=== PATIENT | male | born 1965 | race Caucasian/White ===

== ENCOUNTER 2024-08-29 07:54 | Inpatient (IN) | payer MEDICAID, OTHER ==
[~2024-08-29] VITALS: Ht 180.3 cm; Wt 119.0 kg
--- NOTE | 2024-08-29 09:03 | ED.PDOC ---
Altered Mental Status HPI Comments 58 year old male brought in by EMS presents to the ED with a chief complaint of altered mental status onset today. Per EMS, they were called due to patient experiencing ALOC, slurred speech that was noticed today around 06:00. According to facility, patient experienced multiple falls last night, no LOC. Upon ED a rrival BS was 75. PMHx seizures. Denies chest pain, LOC, head injury. No other symptoms or modifying factors present at this time. Chief Complaint: ALOC Time Seen by MD: 08:24 Reviewed Notes: Medications, Allergies Allergies: Coded Allergies: NO KNOWN ALLERGIES (Unverified , 08/29/24) Information Source: Patient, Emergency Med Personnel Mode of Arrival: EMS Severity: Moderate Timing: Hours Duration: Since onset Prehospital treatment: None Quality: Decreased Alertness Recent: Other (fall) History of: Seizure Associated Signs and Symptoms: Slurred Speech Past Medical History PAST MEDICAL HISTORY: Seizures Surgical History: Unknown Family History Family History: Unknown Social History Smoker: Non-Smoker Alcohol: Denies ETOH Use Drugs: Denies Drug Use Lives In: Assisted Care Constitutional: denies: chills, diaphoresis, fatigue, fever, malaise, sweats, weakness, others EENTM: denies: blurred vision, double vision, ear bleeding, ear discharge, ear drainage, ear pain, ear ringing, eye pain, eye redness, hearing loss, mouth pain, mouth swelling, nasal discharge, nose bleeding, nose congestion, nose pain, photophobia, tearing, throat pain, throat swelling, voice changes, others Respiratory: denies: cough, hemoptysis, orthopnea, SOB at rest, shortness of breath, SOB with excertion, stridor, wheezing, others Cardiovascular: denies: chest pain, dizzy spells, diaphoresis, Dyspnea on exertion, edema, irregular heart beat, left arm pain, lightheadedness, palpitations, PND, syncope, others Gastrointestinal: denies: abdomen distended, abdominal pain, blood streaked bowels, constipated, diarrhea, dysphagia, difficulty swallowing, hematemesis, melena, nausea, poor appetite, poor fluid intake, rectal bleeding, rectal pain, vomiting, others Genitourinary: denies: burning, dysuria, flank pain, frequency, hematuria, incontinence, penile discharge, penile sore, pain, testicle pain, testicle swelling, urgency, others Neurological: reports: speech problems (slurred); denies: dizziness, fainting, headache, left sided numbness, left sided weakness, numbness, paresthesia, pre- existing deficit, right sided numbness, right sided weakness, seizure, tingling, tremors, weakness, others Musculoskeletal: denies: back pain, gout, joint pain, joint swelling, muscle pain, muscle stiffness, neck pain, others Integumetry: denies: bruises, change in color, change in hair/nails, dryness, laceration, lesions, lumps, rash, wounds, others Allergic/Immunocompromised: denies: Difficulty Healing, Frequent Infections, Hives, Itching, others Hematologic/Lymphatic: denies: anemia, blood clots, easy bleeding, easy bruising, swollen glands, others Endocrine: denies: excessive hunger, excessive sweating, excessive thirst, excessive urination, flushing, intolerance to cold, intolerance to heat, une xplained weight gain, unexplained weight loss, others Psychiatric: denies: anxiety, bipolar disorder, depression, hopeless, panic disorder, schizophrenia, sleepless, suicidal, others Unable to Obtain due to: Altered Mental Status All Other Systems: Reviewed and Negative Physical Exam General Appearance: No Apparent Distress, Obese, Other (FACIAL DROOP) HEENT: Normal ENT Inspection, PERRL/EOMI, Other (SLURRED SPEECH) Neck: Full Range of Motion, Non-Tender, Normal, Normal Inspection Respiratory: Chest Non-Tender, Lungs Clear, No Accessory Muscle Use, No Respiratory Distress, Normal Breath Sounds Cardiovascular: No Edema, No JVD, No Murmur, No Gallop, Normal Peripheral Pulses, Regular Rate/Rhythm Breast Exam: Deferred Gastrointestinal: No Organomegaly, Non Tender, No Pulsatile Mass, Normal Bowel Sounds, Soft, Other (OBESITY) Genitalia: Deferred Pelvic: Deferred Rectal: Deferred Extremities: Decreased range of motion, Non-tender, No pedal edema Neurologic: Alert, Depressed Affect, Facial Droop, Motor Weakness, Speech Problem Cerebellar Function: NOT DONE Reflexes: NOT DONE Skin: Dry, Normal Color, Warm Peripheral Pulses: 1+ carotid (R), 1+ carotid (L) Lymphatic: No Adenopathy EKG EKG : Pulse Rate (adult): 73 Cardiac Rhythm: NSR Block: LBBB Hypertrophy: LAE Was a procedure done? Was a procedure done?: No Differential Diagnosis (ALOC) Differential Diagnosis: Dehydration, Hypoglycemia, Encephalopathy, Sepsis, Hypoxemia, Seizure, Closed Head Injury, CVA, Mass Lesion, Drug Overdose, ETOH Intoxication, Heart Failure, Renal Failure X-Ray, Labs, Meds, VS Vital Signs Date Time Temp Pulse Resp B/P (MAP) Pulse Ox O2 Delivery O2 Flow Rate FiO2 08/29/24 15:00 69 14 139/94 (109) 95 08/29/24 12:00 100 14 123/60 (81) 100 08/29/24 11:28 73 08/29/24 10:53 74 17 95 Nasal Cannula* 3 32 08/29/24 10:52 97.5 74 17 138/67 (90) 95 97.5 08/29/24 08:19 97.2 89 20 116/68 (84) 95 08/29/24 08:14 73 Lab Test 08/29/24 13:45 08/29/24 11:25 Range/Units Prothrombin Time 11.5 9.3-11.8 sec Prothrombin Time INR 1.09 0.9-1.15 Activated Partial Thromboplast Time 26.7 24.5-34.5 SEC D-Dimer, Quantitative 0.50 H 0.0-0.49 mg/L FEU White Blood Count 9.3 4.4-10.8 10^3/uL Red Blood Count 2.77 L 4.5-5.90 10^6/uL Hemoglobin 7.8 L 13.5-17.5 g/dL Hematocrit 26.0 L 41.0-53.0 % Mean Corpuscular Volume 93.8 80.0-100.0 fL Mean Corpuscular Hemoglobin 28.2 28.0-32.0 pg Mean Corpuscular Hemoglobin Concent 30.0 L 32.0-36.0 g/dL Red Cell Distribution Width 18.2 H 11.8-14.3 % Platelet Count 225 140-450 10^3/uL Mean Platelet Volume 8.2 6.9-10.8 fL Neutrophils (%) (Auto) 66.0 37.0-80.0 % Lymphocytes (%) (Auto) 21.6 10.0-50.0 % Monocytes (%) (Auto) 10.7 0.0-12.0 % Eosinophils (%) (Auto) 1.4 0.0-7.0 % Basophils (%) (Auto) 0.3 0.0-2.0 % Neutrophils # (Auto) 6.1 1.6-8.6 10 ^3/uL Lymphocytes # (Auto) 2.0 0.4-5.4 10 ^3/uL Monocytes # (Auto) 1.0 0-1.3 10 ^3/uL Eosinophils # (Auto) 0.1 0-0.8 10 ^3/uL Basophils # (Auto) 0 0-0.2 10 ^3/uL Nucleated Red Blood Cells 0.2 % Sodium Level 138 136-145 mmol/L Potassium Level 4.5 3.5-5.1 mmol/L Chloride Level 102 98-107 mmol/L Carbon Dioxide Level 24 20-31 mmol/L Anion Gap 12 5-15 Blood Urea Nitrogen 64 H 9-23 mg/dL Creatinine 3.18 H 0.700-1.30 mg/dL Glomerular Filtration Rate Calc 22 >90 mL/min BUN/Creatinine Ratio 20.1 H 10.0-20.0 Serum Glucose 73 L 74-106 mg/dL Lactic Acid Level 1.4 0.4-2.0 mmol/L Calcium Level 10.0 8.7-10.4 mg/dL Magnesium Level 2.0 1.6-2.6 mg/dL Total Bilirubin 0.4 0.2-1.0 mg/dL Aspartate Amino Transferase (AST) < 8 L 13-40 U/L Alanine Aminotransferase (ALT) 20 7-40 U/L Alkaline Phosphatase 49 46-116 U/L Troponin I High Sensitivity 53 </=54 ng/L Total Protein 7.2 5.7-8.2 g/dL Albumin 4.4 3.2-4.8 g/dL Plasma/Serum Blood Alcohol 3.4 <10 mg/dL Current Medications Medications (Trade) Dose Ordered Sig/Josie Route Start Time Stop Time Status Last Admin Sodium Chloride 500 ml @ 500 mls/hr Q1H ONCE IVB 08/29/24 11:00 08/29/24 11:59 DC 08/29/24 11:[address] [address] Ph: [phone] DIAGNOSTIC IMAGING Diagnostic Imaging Report : [id number] Signed PATIENT: KEVIN SHEFFIELD ACCT: [id number] UNIT: [id number] : 1965 LOC: ER ROOM / BED: / AGE / SEX: 58 / M ADM STATUS: REG ER SERVICE 6 ORDERING PHYSICIAN: KAREN BARRY MD PROCEDURE(s): HWOCT - HEAD WITHOUT CONTRAST REASON: ALOC ORDER NUMBER(s): [id number], ACCESSION NUMBER(s): [id number] CT HEAD WITHOUT CONTRAST INDICATION: ALOC EXAM DATE: 08/29/2024 09:04 AM COMPARISON: None RADIATION DOSE: CTDIvol: 69 mGy, DLP: 1499 mGy*cm PROCEDURE: CT scans of the head were obtained from the vertex to the skull base. Sagittal and coronal reconstructions were provided. All CT scans at this medical facility are performed using dose modulation techniques as appropriate to a performed exam including the following: Automated exposure control was utilized; adjustment of the MA and/or KV according to patient size; and use of iterative reconstruction technique. FINDINGS: There is sulcal and ventricular prominence. The brain otherwise shows normal morphology and olguin-white matter differentiation, without intracranial hemorrhage, extra-axial fluid collection, mass effect or acute large vessel infarct.The basal cisterns are patent. The skull and visible facial bones are intact. The paranasal sinuses, mastoid air cells and middle ear cavities are well-aerated. The soft tissues of the scalp are unremarkable. IMPRESSION: No acute intracranial abnormality. ATED BY: THEE TORIBIO MD DICTATED DATE/TIME: 08/29/24923 SIGNED BY: THEE TORIBIO MD SIGNED DATE/TIME: 08/29/24923 CC: X-Ray, Labs, Meds, VS Comment COURSE IN THE EMERGENCY DEPARTMENT EVENTFUL PATIENT CAME IN BECAUSE OF A SLURRED SPEECH AND HAD MULTIPLE FALLS HE CAME FROM A FACILITY PATIENT HAS HISTORY OF CHF DIABETES AND HYPERTENSION BLOOD PRESSURE IS 116/68 THE BLOOD SUGAR IS 75-135 THE CHEST X-RAY SHOWS PULMONARY VASCULAR CONGESTION EKG SHOWS NORMAL SINUS RHYTHM AT 73 WITH LEFT ATRIAL ENLARGEMENT AND LEFT BUNDLE-BRANCH BLOCK CT HEAD IS NEGATIVE TROPONIN 53 CBC 9300 WITH 66% NEUTROPHILS H&H 7.8 AND 26 CMP GFR 22 LACTIC ACID 1.4 INR 1.09 URINE AND UDS PENDING D-DIMER 0.50 MAGNESIUM 2.0 BLOOD ALCOHOL 34 PATIENT WILL BE ADMITTED FOR FURTHER CARE Time of 1ST Reevaluation: 08:54 Reevaluation 1ST: Unchanged Time of 2ND Reevaluation: 15:46 Reevaluation 2ND: Unchanged Patient Education/Counseling: Diagnosis, Treatment, Prognosis Family Education/Counseling: Diagnosis, Treatment, Prognosis, No Family Present Additional Information The following tests were ordered, and results were reviewed by me: CT HEAD WO CONTRAST, EKG Additional Information was gathered from interviewing the following independent historians: EMS I reviewed and agreed with the following test results read by other providers: CT HEAD WO CONTRAST I discussed treatment and results with medical personnel and patient Departure 1 Departure Time of Disposition: 15:48 Impression: Primary Impression: Generalized weakness Additional Impressions: TIA (transient ischemic attack) Anemia Qualified Codes: N18.4 - Chronic kidney disease, stage 4 (severe); D63.1 - Anemia in chronic kidney disease CKD (chronic kidney disease) stage 4, GFR 15-29 ml/min Disposition: 50 HOSPICE/HOME Condition: Fair Critical Care Note Critical Care Time?: No Stability Stability form required: Yes Unstable for transfer: Telemetry monitoring (Telemetry monitoring required), Requires medication (Requires Med for stabilization) Heart Score Heart Score: Heart Score Response (Comments) Value History Slightly Suspicious 0 EKG Repolarization Disturb 1 Age 45-64 1 Risk Factors >3 or Hx ASHD 2 Troponin Normal limit 0 Total 4 I personally scribed for KAREN BARRY MD ([email or web address]) on 08/29/24 at 09:03. Electronically submitted by Kristy Moses ([email or web address]). I personally scribed for KAREN BARRY MD ([email or web address]) on 08/29/24 at 10:03. Electronically submitted by Kristy Moses ([email or web address]). KAREN BARRY MD Aug 29, 2024 09:03
--- NOTE | 2024-08-29 09:27 | DVH ---
CT HEAD WITHOUT CONTRAST INDICATION: ALOC EXAM DATE: 08/29/2024 09:04 AM COMPARISON: None RADIATION DOSE: CTDIvol: 69 mGy, DLP: 1499 mGy*cm PROCEDURE: CT scans of the head were obtained from the vertex to the skull base. Sagittal and coronal reconstructions were provided. All CT scans at this medical facility are performed using dose modulation techniques as appropriate t o a performed exam including the following: Automated exposure control was utilized; adjustment of th e MA and/or KV according to patient size; and use of iterative reconstruction technique. FINDINGS: There is sulcal and ventricular prominence. The brain otherwise shows normal morphology a nd olguin-white matter differentiation, without intracranial hemorrhage, extra-axial fluid collection, mass effect or acute large vessel infarct.The basal cisterns are patent. The skull and visible facial bones are intact. The paranasal sinuses, mastoid air cells and middle ear cavities are well-aerated. The soft tissues of the scalp are unremarkable. IMPRESSION: No acute intracranial abnormality.
--- NOTE | 2024-08-29 09:36 | ECG ---
[facility] Test Date: 2024-08-29 Test Time: 08:14:38 Pat Name: KEVIN SHEFFIELD Department: ED Room: 0291T Gender: M Product Management Manager: : 1965 Requested By: KAREN BARRY Order Number: [id number] Reading MD: Stan June Measurements Intervals [place] Rate: 73 P: 54 MD: 161 QRS: 41 QRSD: 119 T: 40 QT: 403 QTc: 444 Interpretive Statements Sinus rhythm Left atrial enlargement Incomplete left bundle branch block Abnormal inferior Q waves Electronically Signed On 09-01-2024 16:30:38 PST by Stan June Please click the below link to view image of tracing.
[2024-08-29 10:53] VITALS: PULSE 74; RESP 17; O2SAT 95
[2024-08-29] MEDS: SODIUM CHLORIDE 0.9% 500 ML IVB ONE (11:12)
[2024-08-29] MEDS: SODIUM CHLORIDE 0.9% 1,000 ML IV ONE (11:13)
[2024-08-29 11:53] LABS: Basophils # (auto) 0 10 ^3/uL (0-0.2)
--- NOTE | 2024-08-29 12:00 | DVH ---
AP portable chest HISTORY: ALOC Comparison: None FINDINGS: Heart size is enlarged. Pulmonary vascular markings increased in the right lung. IMPRESSION: 1. Mild pulmonary edema
[2024-08-29 12:03] LABS: Basophils % (auto) 0.3 % (0.0-2.0); Eosinophils # (auto) 0.1 10 ^3/uL (0-0.8); Eosinophils % (auto) 1.4 % (0.0-7.0); Hemoglobin 7.8 g/dL (13.5-17.5); Lymphocytes % (auto) 21.6 % (10.0-50.0); Mean Corpuscular Hemoglobin 28.2 pg (28.0-32.0); Mean Corpuscular Volume 93.8 fL (80.0-100.0); Monocytes % (auto) 10.7 % (0.0-12.0); Neutrophils # (auto) 6.1 10 ^3/uL (1.6-8.6); Nucleated Red Blood Cells % 0.2 %; Platelet Count (auto) 225 10^3/uL (140-450); Red Blood Cells 2.77 10^6/uL (4.5-5.90); Red Cell Distribution Width 18.2 % (11.8-14.3); White Blood Cell 9.3 10^3/uL (4.4-10.8)
[2024-08-29 13:26] LABS: Alanine Aminotransferase 20 U/L (7-40); Albumin 4.4 g/dL (3.2-4.8); Alkaline Phosphatase 49 U/L (46-116); Anion Gap 12 (5-15); BUN/Creatinine Ratio 20.1 (10.0-20.0); Blood Alcohol 3.4 mg/dL (<10); Carbon Dioxide 24 mmol/L (20-31); Chloride 102 mmol/L (98-107); Potassium 4.5 mmol/L (3.5-5.1); Sodium 138 mmol/L (136-145)
[2024-08-29 13:27] LABS: Bilirubin, Total 0.4 mg/dL (0.2-1.0); Total Protein 7.2 g/dL (5.7-8.2)
[2024-08-29 13:28] LABS: Aspartate Aminotransferase < 8 U/L (13-40); Blood Urea Nitrogen 64 mg/dL (9-23); Glucose 73 mg/dL (74-106)
[2024-08-29 14:15] LABS: INR 1.09 (0.9-1.15); Partial Thromboplastin Time 26.7 SEC (24.5-34.5); Prothrombin Time 11.5 sec (9.3-11.8)
[2024-08-29 18:20] LABS: Urine Bacteria None Seen /hpf (None Seen)
[2024-08-29 18:53] LABS: Benzodiazephine Screen, Urine Pos (NEGATIVE); Opiate Scree,Urine Neg (NEGATIVE)
[2024-08-29 18:56] LABS: Amphetamine Screen, Urine Neg (NEGATIVE); Barbiturate Scree,Urine Neg (NEGATIVE); Cannabinoid Screen, Urine Neg (NEGATIVE); Cocaine Screen, Urine Neg (NEGATIVE); Phencyclidine Screen, Urine Neg (NEGATIVE); Urine Blood Negative /uL (Negative); Urine Clarity Clear (Clear); Urine Color Light-Yellow (Yellow); Urine Protein, UAD 2+ (Negative); Urine Specific Gravity 1.012 (1.001-1.035); Urine Squamous Epithelial Cell None Seen /hpf (<5); Urine Urobilinogen Normal (Negative); Urine WBC <1 /hpf (0 - 3)
[2024-08-29 19:30] VITALS: PULSE 73; RESP 13; O2SAT 93
[2024-08-29] MEDS ORDERED: hydrALAZINE HCL 20 MG/ML VL IV PRN (23:00)
[2024-08-29 23:28] VITALS: BP 166/88; PULSE 74; RESP 13; O2SAT 97
[2024-08-29 23:46] LABS: Protein, Urine 128.4 mg/dL (1-14)
[2024-08-29 23:48] LABS: Creatinine, Urine 54.57 mg/dL (30.0-125.0)
--- NOTE | 2024-08-29 23:51 | DVH ---
Bilateral lower extremity venous duplex Clinical History: Raised D dimer Comparison: None Technique: Duplex Doppler evaluation of the deep venous systems of both lower extremities from the common femora l veins to the popliteal veins including color Doppler and spectral/pulsed waveform analysis was perf ormed. Findings: RIGHT SIDE: The common femoral vein demonstrates appropriate compressibility and waveform variability. There is compressibility/patency of the great saphenous vein at the proximal thigh. The femoral vein demonstrates appropriate compressibility and waveform variability. The deep femoral vein demonstrates appropriate compressibility and waveform variability. The popliteal vein demonstrates appropriate compressibility and waveform variability. There is normal compressibility at the tibioperoneal trunk. LEFT SIDE: The common femoral vein demonstrates appropriate compressibility and waveform variability. There is compressibility/patency of the great saphenous vein at the proximal thigh. The femoral vein demonstrates appropriate compressibility and waveform variability. The deep femoral vein demonstrates appropriate compressibility and waveform variability. The popliteal vein demonstrates appropriate compressibility and waveform variability. There is normal compressibility at the tibioperoneal trunk. Impression: 1. No right or left femoropopliteal venous thrombosis. HS:Y
--- NOTE | 2024-08-29 23:55 | DVHHPRES ---
History of Present Illness Resident Creating Document: TENZIN TERRELL RESDIENT History of Present Illness This is a 58-year-old male with past medical history of seizure, diabetes, COPD, CHF (on 4 L of oxygen at 2, CKD grade 3, hypertension, history of COVID-19, skin cancer, degenerative disc disease and BPH brought from [facility] due to multiple falls. Per patient's , the patient has been more confused and altered since 1 days and has been fall at least 3 times within last 24 hours.. Patient has been at [facility] for rehabilit ation. PMHx: seizure, diabetes, COPD, CHF (on 4 L of oxygen at 2, CKD grade 3, hypertension, history of COVID-19, skin cancer, degenerative disc disease and BPH: Social history: Patient lives at [facility] for the rehabilitation, uses walker/cane for the walking, ex-smoker and ex alcoholic, denies any other drug use Home medication: Lorazepam, Lantus, Humalog, metformin, levothyroxine, alendronate, atenolol, enalapril, furosemide, albuterol, fluticasone, omepra zole, ondansetron, tamsulosin, zolpidem, tramadol, decal for weeks sodium, gabapentin, lamotrigine, levetiracetam, baclofen, acetaminophen, potassium chloride, Lokelma, furosemide, atorvastatin, esomeprazole, quetiapine, zopiclone, levetiracetam, lidocaine patch, Azulfidine, Allergic history: No known allergies Review of Systems Review of Systems Patient is confused, oriented to the person, disoriented to the time and place. Review of system could not obtain. Allergies: Coded Allergies: NO KNOWN ALLERGIES (Unverified , 08/29/24) Medications Current Medications Medications Dose Ordered Sig/Josie Route Start Time Stop Time Status Last Admin Dose Admin Furosemide 40 mg DAILY IV 08/30/24 10:00 Amlodipine Besylate 10 mg DAILY PO 08/30/24 10:00 Levothyroxine Sodium 25 mcg QAM@0600 PO 08/30/24 06:00 Hydralazine HCl 10 mg Q6HP PRN IV 08/29/24 23:00 Ipratropium [place] 0.5 mg Q6HPRN PRN NEB 08/29/24 23:00 Albuterol 2.5 mg Q6HPRN PRN NEB 08/29/24 23:00 Tamsulosin HCl 0.4 mg QPM PO 08/30/24 18:00 Docusate Sodium 100 mg BID PO 08/30/24 10:00 Exam Vital Signs Vital Signs Date Time Temp Pulse Resp B/P (MAP) Pulse Ox O2 Delivery O2 Flow Rate FiO2 08/29/24 23:28 74 13 166/88 97 3.0 32 08/29/24 19:30 Nasal Cannula* 08/29/24 10:52 97.5 97.5 Exam General Appearance: Confused, oriented to the person, disoriented to time and place HEENT: Atraumatic, PERRLA, EOMI, Mucous membrane moist/pink Respiratory: Bilateral lower zone crackles Cardiovascular: Regular rate, Normal S1, Normal S2, No murmurs, no chest wall tenderness Abdominal: Normal bowel sounds, Soft, No tenderness, No hepatospenomegaly, No masses Extremities: Grade 2 pedal edema Skin: No rashes, No breakdown, No significant lesion Neuro: Normal gait, Normal speech, Strength at 5/5 X4 ext, Normal tone, Sensation intact, Cranial nerves 3-12 NL, Reflexes 2+ Psych/Mental Status: Mental status NL, Mood NL Labs/Xrays Labs Test 08/29/24 23:26 08/29/24 17:52 08/29/24 13:45 08/29/24 11:25 Range/Units Urine Color Light-yellow Yellow Urine Clarity Clear Clear Urine pH 6.0 5.0-9.0 Urine Specific [place] 1.012 1.001-1.035 Urine Protein 2+ H Negative Urine Ketones Negative Negative Urine Blood Negative Negative /uL Urine Nitrite Negative Negative Urine Bilirubin Negative Negative Urine Urobilinogen Normal Negative mg/dL Urine Leukocyte Esterase Negative Negative /uL Urine RBC <1 0 - 3 /hpf Urine WBC <1 0 - 3 /hpf Urine Squamous Epithelial Cells None seen <5 /hpf Urine Bacteria None seen None Seen /hpf Urine Creatinine 54.57 30.0-125.0 mg/dL Urine Sodium 62 40-220 mmol/L Urine Glucose Normal Normal mg/dL Urine Total Protein 128.4 H 1-14 mg/dL Urine Opiates Screen Neg NEGATIVE Urine Fentanyl Screen Neg NEGATIVE Urine Barbiturates Screen Neg NEGATIVE Urine Phencyclidine Screen Neg NEGATIVE Urine Amphetamines Screen Neg NEGATIVE Urine Benzodiazepines Screen Pos NEGATIVE Urine Cocaine Screen Neg NEGATIVE Urine Cannabinoids Screen Neg NEGATIVE Prothrombin Time 11.5 9.3-11.8 sec Prothrombin Time INR 1.09 0.9-1.15 Activated Partial Thromboplast Time 26.7 24.5-34.5 SEC D-Dimer, Quantitative 0.50 H 0.0-0.49 mg/L FEU White Blood Count 9.3 4.4-10.8 10^3/uL Red Blood Count 2.77 L 4.5-5.90 10^6/uL Hemoglobin 7.8 L 13.5-17.5 g/dL Hematocrit 26.0 L 41.0-53.0 % Mean Corpuscular Volume 93.8 80.0-100.0 fL Mean Corpuscular Hemoglobin 28.2 28.0-32.0 pg Mean Corpuscular Hemoglobin Concent 30.0 L 32.0-36.0 g/dL Red Cell Distribution Width 18.2 H 11.8-14.3 % Platelet Count 225 140-450 10^3/uL Mean Platelet Volume 8.2 6.9-10.8 fL Neutrophils (%) (Auto) 66.0 37.0-80.0 % Lymphocytes (%) (Auto) 21.6 10.0-50.0 % Monocytes (%) (Auto) 10.7 0.0-12.0 % Eosinophils (%) (Auto) 1.4 0.0-7.0 % Basophils (%) (Auto) 0.3 0.0-2.0 % Neutrophils # (Auto) 6.1 1.6-8.6 10 ^3/uL Lymphocytes # (Auto) 2.0 0.4-5.4 10 ^3/uL Monocytes # (Auto) 1.0 0-1.3 10 ^3/uL Eosinophils # (Auto) 0.1 0-0.8 10 ^3/uL Basophils # (Auto) 0 0-0.2 10 ^3/uL Nucleated Red Blood Cells 0.2 % Sodium Level 138 136-145 mmol/L Potassium Level 4.5 3.5-5.1 mmol/L Chloride Level 102 98-107 mmol/L Carbon Dioxide Level 24 20-31 mmol/L Anion Gap 12 5-15 Blood Urea Nitrogen 64 H 9-23 mg/dL Creatinine 3.18 H 0.700-1.30 mg/dL Glomerular Filtration Rate Calc 22 >90 mL/min BUN/Creatinine Ratio 20.1 H 10.0-20.0 Serum Glucose 73 L 74-106 mg/dL Lactic Acid Level 1.4 0.4-2.0 mmol/L Calcium Level 10.0 8.7-10.4 mg/dL Magnesium Level 2.0 1.6-2.6 mg/dL Total Bilirubin 0.4 0.2-1.0 mg/dL Aspartate Amino Transferase (AST) < 8 L 13-40 U/L Alanine Aminotransferase (ALT) 20 7-40 U/L Alkaline Phosphatase 49 46-116 U/L Troponin I High Sensitivity 53 </=54 ng/L Total Protein 7.2 5.7-8.2 g/dL Albumin 4.4 3.2-4.8 g/dL Plasma/Serum Blood Alcohol 3.4 <10 mg/dL Assessment/Plan Assessment/Plan Acute toxic encephalopathy, likely due to polypharmacy History of seizure Head CT scan, shows no acute intracranial abnormality Held antiseizure medicine History of COPD, stable Patient is on 4 L of oxygen on home Breathing treatment p.r.n. Possible acute on chronic systolic heart failure History of hypertension Chest x-ray shows pulmonary congestion with blunting of costophrenic angle Chest ultrasound Continue oxygen through nasal cannula IV Lasix 60 mg stat and then 40 mg daily Check echocardiogram Amlodipine Hydralazine p.r.n. History of hypothyroidism Continue levothyroxine Possible STEPHANI on CKD, likely VMN History of diabetes type 2 Hb A1c is 5.9 History of skin cancer, in remission Severe anemia, normocytic normochromic Check SOB History of Degenerative disc disease BPH, continue tamsulosin DIET: NPO DVT PROPHYLAXIS; due to severe anemia and possible bleeding no anticoagulant is given BOWEL REGIMEN: Docusate CODE STATUS: Goal of care is discussed with the and son on the bedside, modified DNR DISPOSITION: Telemetry Patient's status and paln discussed with the patient's son and on the bedside. Case discussed with Dr. Mcintosh Plan discussed with: Patient, Other (RN) My Orders Orders - TENZIN TERRELL Procedure Category Date Status Time Electrocardigram EKG 08/29/24 Logged 21:41 Admit ADMIT 08/29/24 Transmitted 22:17 Thyroid Stimulating LAB 08/29/24 In Process Hormone 22:54 Free T3 LAB 08/29/24 In Process 22:54 Free T4 (Free LAB 08/29/24 In Process Thyroxine) 22:54 Ammonia LAB 08/29/24 In Process 22:54 Covid19 Antigen Vicki LAB 08/29/24 Logged Rapid Influenza A&B LAB 08/29/24 Logged 22:54 Npo Except Ice Chips ORDERS 08/29/24 Transmitted 22:54 LIVER US 08/29/24 Taken 22:54 Folate (Folic Acid) LAB 08/29/24 In Process 22:54 Vitamin D, 25-Hydroxy LAB 08/29/24 In Process 22:54 Vitamin B12 LAB 08/29/24 In Process 22:54 RPR LAB 08/29/24 In Process 22:54 Bilat Lower Dvt US 08/29/24 Resulted 22:54 Echo 2d Mode Cardiac US 08/29/24 Logged DOP 22:54 Chest Ultrasound US 08/29/24 Taken 22:54 Stool Occult Blood LAB 08/29/24 Logged 22:54 Troponin-I Hs LAB 08/30/24 Verified 04:00 Complete Blood Count LAB 08/30/24 Verified 04:00 Comprehensive LAB 08/30/24 Verified Metabolic Panel 04:00 Furosemide Injection PHA 08/30/24 In Process (Lasix Injection) 10:00 Amlodipine Tablet PHA 08/30/24 In Process (Norvasc Tablet) 10:00 Levothyroxine Tablet PHA 08/30/24 In Process (Synthroid Tablet) 06:00 Hydralazine Injection PHA 08/29/24 In Process (Apresoline Inject 23:00 Hemoglobin A1c LAB 08/29/24 In Process 22:54 Ipratropium Medneb PHA 08/29/24 In Process (Atrovent Medneb) 23:00 Albuterol Medneb PHA 08/29/24 In Process (Ventolin Medneb) 23:00 Tamsulosin PHA 08/30/24 In Process Hydrochloride (Flomax) 18:00 Docusate Sodium PHA 08/30/24 In Process Capsule (Colace 10:00 Date of Service: Aug 29, 2024 Billing Provider: HAYDEN MCINTOSH MD Common Visit Codes: [id number] INP/OBS CARE (HIGH) HEWATENZIN CEDILLO Aug 29, 2024 23:55 HAYDEN MCINTOSH MD Aug 30, 2024 12:21
[2024-08-30 00:03] LABS: Free T3 2.65 pg/mL (2.3-4.2); Free T4 (Free Thyroxine) 1.37 ng/dL (0.89-1.76)
[2024-08-30] MEDS: amLODIPine BESYLATE 5 MG TAB PO ONE (00:03)
[2024-08-30 00:04] LABS: Folate (Folic Acid) 15.66 ng/mL (>5.38)
[2024-08-30] MEDS: DOCUSATE SOD 100 MG CAP PO ONE (00:04)
[2024-08-30] MEDS: TAMSULOSIN HYDROCHLORIDE 0.4 MG CAP PO ONE (00:04)
[2024-08-30] MEDS: FUROSEMIDE 100 MG/10ML VIAL IV ONE (00:05)
[2024-08-30 01:16] VITALS: PULSE 116; RESP 16; O2SAT 96
[2024-08-30] MEDS: IPRATROPIUM BROM 0.5 MG/2.5ML INH SOL NEB PRN (01:20)
[2024-08-30] MEDS: ALBUTEROL SULF 2.5 MG/0.5ML(0.5%) NEB SOLN NEB PRN (01:20)
--- NOTE | 2024-08-30 04:33 | DVH ---
ULTRASOUND ABDOMEN limited, 4 QUADRANTS INDICATION: Ascitis Evaluate for ascites. TECHNIQUE: The four quadrants of the abdomen and the right and left chest were scanned in mendez-scale to assess f or the presence of ascites. No solid organ assessment was performed. FINDINGS/IMPRESSIONS: Trace bilateral pleural effusions. No evidence of fluid noted in the abdomen.
[2024-08-30 04:48] LABS: Eosinophils # (auto) 0.1 10 ^3/uL (0-0.8); Hemoglobin 8.2 g/dL (13.5-17.5); Lymphocytes # (auto) 1.2 10 ^3/uL (0.4-5.4); Monocytes # (auto) 0.8 10 ^3/uL (0-1.3); Nucleated Red Blood Cells % 0.1 %
[2024-08-30 04:49] LABS: Basophils # (auto) 0.1 10 ^3/uL (0-0.2); Basophils % (auto) 0.6 % (0.0-2.0); Eosinophils % (auto) 1.3 % (0.0-7.0); Hematocrit 25.2 % (41.0-53.0); Lymphocytes % (auto) 12.3 % (10.0-50.0); Mean Corpuscular Hemoglobin 27.9 pg (28.0-32.0); Mean Corpuscular Hgb Conc. 32.6 g/dL (32.0-36.0); Mean Corpuscular Volume 85.6 fL (80.0-100.0); Monocytes % (auto) 7.9 % (0.0-12.0); Neutrophils # (auto) 7.7 10 ^3/uL (1.6-8.6); Neutrophils % (auto) 77.9 % (37.0-80.0); Platelet Count (auto) 262 10^3/uL (140-450); Red Blood Cells 2.95 10^6/uL (4.5-5.90); Red Cell Distribution Width 17.3 % (11.8-14.3); White Blood Cell 9.9 10^3/uL (4.4-10.8)
[2024-08-30 05:06] LABS: Alanine Aminotransferase 21 U/L (7-40); Albumin 4.4 g/dL (3.2-4.8); Alkaline Phosphatase 57 U/L (46-116); Anion Gap 8 (5-15); Aspartate Aminotransferase 21 U/L (13-40); BUN/Creatinine Ratio 24.4 (10.0-20.0); Bilirubin, Total 0.5 mg/dL (0.2-1.0); Carbon Dioxide 30 mmol/L (20-31); Chloride 100 mmol/L (98-107); Potassium 3.9 mmol/L (3.5-5.1); Sodium 138 mmol/L (136-145); Total Protein 7.6 g/dL (5.7-8.2)
[2024-08-30 05:07] LABS: Calcium 10.3 mg/dL (8.7-10.4)
[2024-08-30 05:09] LABS: Blood Urea Nitrogen 69 mg/dL (9-23); Glucose 107 mg/dL (74-106)
[2024-08-30] MEDS: LEVOTHYROXINE SODIUM 25 MCG TAB PO SCH (06:00)
--- NOTE | 2024-08-30 06:39 | ECG ---
[facility] Test Date: 2024-08-29 Test Time: 22:14:33 Pat Name: YOHANNES BROWN Department: ED Room: 0291T Gender: M Speeder Tender: NAILA : 1965 Requested By: TENZIN TERRELL Order Number: [id number] Reading MD: Stan June Measurements Intervals [place] Rate: 74 P: 34 [place]: 242 QRS: 46 QRSD: 116 T: 39 QT: 467 QTc: 519 Interpretive Statements Sinus rhythm Prolonged [place] interval Incomplete left bundle branch block Electronically Signed On 09-01-2024 16:34:19 PST by Stan June Please click the below link to view image of tracing.
[2024-08-30] MEDS: KETAMINE 50mg/ML 10ml Vial (500mg/10ml) IV ONE (07:30)
[2024-08-30 07:56] LABS: COVID19 ANTIGEN SOFIA FIA NEGATIVE (NEGATIVE); Rapid Influenza A Negative (Negative); Rapid Influenza B Negative (Negative)
[2024-08-30 08:00] VITALS: PULSE 80; RESP 18; O2SAT 97
[2024-08-30 08:34] VITALS: O2SAT 96
[2024-08-30] MEDS: DOCUSATE SOD 100 MG CAP PO SCH (09:58)
[2024-08-30] MEDS: amLODIPine BESYLATE 5 MG TAB PO SCH (09:58)
[2024-08-30] MEDS: FUROSEMIDE 40 MG/4 ML VIAL IV SCH ×2 (09:59→14:08)
--- NOTE | 2024-08-30 12:59 | DVHSR ---
APPROVED REPORT EXAM: Two-dimensional and M-mode echocardiogram with Doppler and color Doppler. Blood Pressure: 154/78 mmHg INDICATION HF RISK FACTORS Height: 71, Weight: 209 DIMENSIONS LVDd (3.8-5.7cm)LA (2D)5.1 (1.9-4.0cm)Aortic Root3.7 (2.0-3.7cm) LVDs (2.5-4.0cm)LA (MM) (1.9-4.0cm)Aortic Cusp Exc1.5 (1.5-2.0cm) EF (%) 53.0 (55-70%)Rt. Atrium5.4 (1.9-4.0cm)Asc. Aorta cm Mitral Valve MitralMitral Stenosis E wave1.29m/sMV Mean GR.mmHg A wave0.71m/sMV Peak GR.132mmHg E/A ratio1.82D MVAcm2 DECEL [id number] 1/2 [id number] IVRTmsDop MVA3.55cm2 Aortic Valve Aortic ValveAortic Stenosis V10.79m/Davina Mean GR.4mmHg V21.44m/Davina Peak GR.8mmHg LVOT Diameter2.1 (1.8-2.4cm)Doppler AVA1.90cm2 Pulmonic Valve V20.91m/s Tricuspid Valve TR Velocity3.73m/s [id number] Conclusion lvef 55% by visual estimate left atrium enlarged mild normal rv function no severe valve abnormalities noted
--- NOTE | 2024-08-30 15:21 | DVHPNRES ---
Progress Note Date Seen: Aug 30, 2024 Resident Creating Document: JOHN BARCENAS RESIDENT Medical Necessity Reason Pt with a Central, PICC or Fol: No Subjective Review of Systems This is a 58-year-old male with past medical history of seizure, diabetes, COPD, CHF (on 4 L of oxygen at 2, CKD grade 3, hypertension, history of COVID-19, skin cancer, degenerative disc disease and BPH brought from [facility] due to multiple falls. Per patient's , the patient has been more confused and altered since 1 days and has been fall at least 3 times within last 24 hours.. Patient has been at [facility] for rehabilitation. Patient was seen and examined on the bedside. He is alert, oriented x3 and on 4L oxygen. No overnight event and no active complaint. Constitutional: No: Fever, Chills, Sweats, Weakness, Malaise, Other Eyes: No: Pain, Vision change, Conjunctivae inflammation, Eyelid inflammation, Other, Redness ENT: No: Ear pain, Ear discharge, Nose pain, Nose discharge, Nose congestion, Mouth pain, Mouth swelling, Throat pain, Throat swelling, Other Respiratory: Shortness of breath, improving No: Cough, Dry,Wheezing, Hemoptysis, Pleuritic Pain, Sputum, Wheezing, Other Cardiovascular: No: Chest Pain, Palpitations, Orthopnea, Paroxysmal Noc. Dyspnea, Edema, Lt Headedness, Other Gastrointestinal: No: Nausea, Vomiting, Abdominal Pain, Diarrhea, Constipation, Melena, Hematochezia, Other Musculoskeletal: No: other, neck pain, shoulder pain, arm pain, back pain, hand pain, leg pain, foot pain Neurological:; No: Weakness, Numbness, Incoordination, Change in speech, Confusion, Seizures Objective vital signs Vital Sign Date Time Temp Pulse Resp B/P (MAP) Pulse Ox O2 Delivery O2 Flow Rate FiO2 08/30/24 14:08 148/70 08/30/24 14:00 78 14 98 08/30/24 08:34 Nasal Cannula 4.0 08/30/24 08:34 36 08/30/24 08:00 97.7 97.7 Total Intake and Output 08/29/24 08/29/24 08/30/24 15:00 23:00 07:00 Intake Total 500 ml Output Total 1200 ml 2000 ml Balance 500 ml -1200 ml -2000 ml medications Current Medications Medications Dose Ordered Sig/Josie Route Start Time Stop Time Status Last Admin Dose Admin Amlodipine Besylate 10 mg DAILY PO 08/30/24 10:00 08/30/24 09:58 10 MG Levothyroxine Sodium 25 mcg QAM@0600 PO 08/30/24 06:00 Hydralazine HCl 10 mg Q6HP PRN IV 08/29/24 23:00 Ipratropium [place] 0.5 mg Q6HPRN PRN NEB 08/29/24 23:00 08/30/24 01:20 0.5 MG Albuterol 2.5 mg Q6HPRN PRN NEB 08/29/24 23:00 08/30/24 01:20 2.5 MG Tamsulosin HCl 0.4 mg QPM PO 08/30/24 18:00 Docusate Sodium 100 mg BID PO 08/30/24 10:00 08/30/24 09:58 100 MG Levetiracetam 1,000 mg BID PO 08/30/24 22:00 Furosemide 40 mg BID IV 08/30/24 11:30 08/30/24 14:08 40 MG Examination Physical examination: General Appearance: Alert, Oriented X3, Cooperative, mild distress and on 4 L oxygen with nasal canula HEENT: Atraumatic, PERRLA, EOMI, Mucous membrane moist/pink Respiratory: Bilateral basal crackles. Cardiovascular: Regular rate, Normal S1, Normal S2, No murmurs, no chest wall tenderness Abdominal: Normal bowel sounds, Soft, No tenderness, No hepatospenomegaly, No masses Extremities: Bilateral 2+ pedal edema, No clubbing, No cyanosis, No edema, Normal pulses, No tenderness/swelling Skin: No rashes, No breakdown, No significant lesion Neuro: Bed bound and use cane, Normal speech, Strength at 5/5 X4 ext, Normal tone, Sensation intact, grossly intact cranial nerves. Psych/Mental Status: Mental status NL, Mood NL laboratory and microbiology Laboratory Tests 08/30/24 04:36 Test 08/30/24 04:36 Range/Units Serum Glucose 107 H 74-106 mg/dL Microbiology Date/Time Source Procedure Growth Status 08/29/24 11:25 Blood Blood Culture - Preliminary NO GROWTH AFTER 24 HOURS OF INCUBATION. Resulted Labs and/or images reviewed: Labs reviewed by me, Image(s) reviewed by me Problem List/Assessment/Plan Problem List/Assessment/Plan Assessment/Plan # Acute toxic encephalopathy, likely due to polypharmacy # S/P recurrent fall # History of seizure - Head CT swithout contrast revealed no acute intracranial abnormality - Ammonia is normal - Continue keppra 1000 mg p.o. b.i.d. # History of COPD, stable - Patient is on 4 L of oxygen on home - Breathing treatment p.r.n. # Possible acute on chronic distolic heart failure # History of hypertension # NSTEMI type 2 secondary to above -Chest x-ray shows pulmonary congestion with blunting of costophrenic angle - IV Lasix 40 mg b.i.d - Troponin trends are 53>60 - BNP is 2649.69 - Echo on 08/30/24 demonstrated EF 55% - Continue Amlodipine 10 mg po daily - IV Hydralazine 10 mg Q6 hr p.r.n. # History of hypothyroidism - Continue levothyroxine 25 mcg daily. # Possible STEPHANI on CKD secondary to hemodynamically mediated/VMN - 1.5L IV NS bolus given - MOnitor BMP # History of diabetes type 2 Hb A1c is 5.9 - Mild sliding scale of insulin # History of skin cancer, in remission # Chronic anaemia likely secondary to CKD - Ordered iron panel, ferritin. # History of BPH - Bladder scan is negative for acute retention. - continue tamsulosin 0.4 mg at HS DIET: cardiac DVT PROPHYLAXIS; due to anemia and possible bleeding no anticoagulant is given BOWEL REGIMEN: Docusate CODE STATUS: Goal of care is discussed with the and son on the bedside, modified DNR DISPOSITION: Telemetry Plan discussed with Plan discussed with: Patient, Other My Orders My Orders Orders - JOHN BARCENAS Procedure Category Date Status Time Cardiac DIET 08/30/24 Transmitted Diet-2gna,Lofat,Lochol Lunch Levetiracetam Tablet PHA 08/30/24 In Process (Keppra Tablet) 22:00 Bladder Scan ED NURSING 08/30/24 Transmitted Orthostatic Vital ORDERS 08/30/24 Transmitted Signs 11:59 Date of Service: Aug 30, 2024 Billing Provider: MICHELET OCHOA MD Common Visit Codes: [id number] INP/OBS CARE(HIGH) FARDOUS,JOHN UGALDE Aug 30, 2024 15:21 MICHELET OCHOA MD Sep 01, 2024 12:59
[2024-08-30 17:05] LABS: % Iron Saturation 11.4 % (20-55)
[2024-08-30] MEDS: TAMSULOSIN HYDROCHLORIDE 0.4 MG CAP PO SCH (18:18)
[2024-08-30 19:42] VITALS: O2SAT 100
[2024-08-30] MEDS: levETIRAcetam 500 MG TAB PO SCH (22:11)
[2024-08-31] VITALS (15 sets, daily range): BP systolic 124–146; BP diastolic 55–71; PULSE 76–89; RESP 16–20; TEMP 97.6–98.4; O2SAT 92–100
[2024-08-31 07:45] LABS: Anion Gap 9 (5-15); Carbon Dioxide 31 mmol/L (20-31); Chloride 99 mmol/L (98-107); Potassium 3.8 mmol/L (3.5-5.1); Sodium 139 mmol/L (136-145)
[2024-08-31 07:51] LABS: BUN/Creatinine Ratio 22.3 (10.0-20.0)
[2024-08-31 07:55] LABS: Blood Urea Nitrogen 63 mg/dL (9-23); Glucose 137 mg/dL (74-106)
[2024-08-31 08:03] LABS: Hemoglobin 7.6 g/dL (13.5-17.5); Nucleated Red Blood Cells % 0.1 %
[2024-08-31 08:06] LABS: RPR Non Reactive (Non Reactive)
[2024-08-31 08:06] LABS: Basophils # (auto) 0 10 ^3/uL (0-0.2); Basophils % (auto) 0.3 % (0.0-2.0); Eosinophils # (auto) 0.2 10 ^3/uL (0-0.8); Eosinophils % (auto) 1.8 % (0.0-7.0); Hematocrit 22.9 % (41.0-53.0); Lymphocytes # (auto) 1.3 10 ^3/uL (0.4-5.4); Lymphocytes % (auto) 12.6 % (10.0-50.0); Mean Corpuscular Hemoglobin 28.1 pg (28.0-32.0); Monocytes % (auto) 9.4 % (0.0-12.0); Neutrophils # (auto) 7.7 10 ^3/uL (1.6-8.6); Neutrophils % (auto) 75.9 % (37.0-80.0); Platelet Count (auto) 241 10^3/uL (140-450); Red Blood Cells 2.69 10^6/uL (4.5-5.90); White Blood Cell 10.1 10^3/uL (4.4-10.8)
[2024-08-31] MEDS ORDERED: DEXTROSE (50%) 50ML SYRG IV PRN (11:00)
[2024-08-31] MEDS: levETIRAcetam 500 MG TAB PO SCH (11:15)
[2024-08-31 11:41] LABS: Base Excess 5.5 mmol/L (-2.0-3.0)
[2024-08-31] MEDS: ACCU-CHEK COMFORT CURVE STRIP VI SCH (12:45)
--- NOTE | 2024-08-31 15:28 | DVHDSRES ---
Discharge Summary Date of Admission Resident Creating Document: JOHN BARCENAS RESIDENT Aug 29, 2024 at 22:17 Date of Discharge: Aug 31, 2024 Admitting Diagnosis Acute toxic encephalopathy secondary to polypharmacy Wounds: No wound was present Labs/Diagnostic Data: Laboratory Results Test 08/31/24 12:43 08/31/24 11:14 08/31/24 06:26 08/30/24 06:38 POC Glucose 160 mg/dl (70-106) Blood Gas Specimen Type Arterial Blood Gas Sample Site Right radial Blood Gas Patient Temperature 37.0 Arterial Blood Date Drawn [id number] Arterial Blood pH 7.469 (7.350-7.450) Arterial Blood Partial Pressure CO2 41.8 mmHg (35.0-48.0) Arterial Blood Partial Pressure O2 83.7 mmHg (83.0-108.0) Arterial Blood HCO3 29.7 mmol/L (21.0-28.0) Arterial Blood Oxygen Saturation 95.3 % (94.0-98.0) Arterial Blood Base Excess 5.5 mmol/L (-2.0-3.0) Arterial Blood Oxyhemoglobin 93.4 % (94.0-98.0) Arterial Blood Carboxyhemoglobin 1.6 % (0.5-1.5) Arterial Blood Methemoglobin 0.4 % (0.0-1.5) Marty Test Yes Blood Gas Total Hemoglobin 7.70 g/dL (13.5-17.5) Blood Gas Liter Flow 3.00 Blood Gas Modality Nasal cannula FiO2 % 32.0 Blood Gas Critical Value Read Back Yes White Blood Count 10.1 10^3/uL (4.4-10.8) Red Blood Count 2.69 10^6/uL (4.5-5.90) Hemoglobin 7.6 g/dL (13.5-17.5) Hematocrit 22.9 % (41.0-53.0) Mean Corpuscular Volume 85.0 fL (80.0-100.0) Mean Corpuscular Hemoglobin 28.1 pg (28.0-32.0) Mean Corpuscular Hemoglobin Concent 33.0 g/dL (32.0-36.0) Red Cell Distribution Width 17.0 % (11.8-14.3) Platelet Count 241 10^3/uL (140-450) Mean Platelet Volume 8.0 fL (6.9-10.8) Neutrophils (%) (Auto) 75.9 % (37.0-80.0) Lymphocytes (%) (Auto) 12.6 % (10.0-50.0) Monocytes (%) (Auto) 9.4 % (0.0-12.0) Eosinophils (%) (Auto) 1.8 % (0.0-7.0) Basophils (%) (Auto) 0.3 % (0.0-2.0) Neutrophils # (Auto) 7.7 10 ^3/uL (1.6-8.6) Lymphocytes # (Auto) 1.3 10 ^3/uL (0.4-5.4) Monocytes # (Auto) 1.0 10 ^3/uL (0-1.3) Eosinophils # (Auto) 0.2 10 ^3/uL (0-0.8) Basophils # (Auto) 0 10 ^3/uL (0-0.2) Nucleated Red Blood Cells 0.1 % Sodium Level 139 mmol/L (136-145) Potassium Level 3.8 mmol/L (3.5-5.1) Chloride Level 99 mmol/L (98-107) Carbon Dioxide Level 31 mmol/L (20-31) Anion Gap 9 (5-15) Blood Urea Nitrogen 63 mg/dL (9-23) Creatinine 2.83 mg/dL (0.700-1.30) Glomerular Filtration Rate Calc 25 mL/min (>90) BUN/Creatinine Ratio 22.3 (10.0-20.0) Serum Glucose 137 mg/dL (74-106) Calcium Level 10.0 mg/dL (8.7-10.4) Influenza Type A Antigen Negative (Negative) Influenza Type B Antigen Negative (Negative) SARS-CoV-2 Antigen (Rapid) Negative (NEGATIVE) Test 08/30/24 04:36 08/29/24 23:26 08/29/24 17:52 08/29/24 13:45 Iron Level 42 ug/dL (65-175) Total Iron Binding Capacity 367 ug/dL (250-425) Percent Iron Saturation 11.4 % (20-55) Ferritin 107.5 ng/mL (22-322) Total Bilirubin 0.5 mg/dL (0.2-1.0) Aspartate Amino Transferase (AST) 21 U/L (13-40) Alanine Aminotransferase (ALT) 21 U/L (7-40) Alkaline Phosphatase 57 U/L (46-116) Troponin I High Sensitivity 60 ng/L (</=54) B-Type Natriuretic Peptide 2649.69 pg/mL (0-100) Total Protein 7.6 g/dL (5.7-8.2) Albumin 4.4 g/dL (3.2-4.8) Hemoglobin A1c 5.9 % A1C (<5.7) Ammonia 20 umol/L (11-32) Vitamin B12 Level 522 pg/mL (211-911) Vitamin D 25-Hydroxy 40.4 ng/mL (30.0-100) Folic Acid 15.66 ng/mL (>5.38) Thyroid Stimulating Hormone (TSH) 0.34 uIU/mL (0.55-4.78) Free Thyroxine (T4) Calculated 1.37 ng/dL (0.89-1.76) Free Triiodothyronine (T3) pg/mL 2.65 pg/mL (2.3-4.2) Rapid Plasma Reagin Non reactive (Non Reactive) Urine Color Light-yellow (Yellow) Urine Clarity Clear (Clear) Urine pH 6.0 (5.0-9.0) Urine Specific Collins 1.012 (1.001-1.035) Urine Protein 2+ (Negative) Urine Ketones Negative (Negative) Urine Blood Negative /uL (Negative) Urine Nitrite Negative (Negative) Urine Bilirubin Negative (Negative) Urine Urobilinogen Normal mg/dL (Negative) Urine Leukocyte Esterase Negative /uL (Negative) Urine RBC <1 /hpf (0 - 3) Urine WBC <1 /hpf (0 - 3) Urine Squamous Epithelial Cells None seen /hpf (<5) Urine Bacteria None seen /hpf (None Seen) Urine Creatinine 54.57 mg/dL (30.0-125.0) Urine Sodium 62 mmol/L (40-220) Urine Glucose Normal mg/dL (Normal) Urine Total Protein 128.4 mg/dL (1-14) Urine Opiates Screen Neg (NEGATIVE) Urine Fentanyl Screen Neg (NEGATIVE) Urine Barbiturates Screen Neg (NEGATIVE) Urine Phencyclidine Screen Neg (NEGATIVE) Urine Amphetamines Screen Neg (NEGATIVE) Urine Benzodiazepines Screen Pos (NEGATIVE) Urine Cocaine Screen Neg (NEGATIVE) Urine Cannabinoids Screen Neg (NEGATIVE) Prothrombin Time 11.5 sec (9.3-11.8) Prothrombin Time INR 1.09 (0.9-1.15) Activated Partial Thromboplast Time 26.7 SEC (24.5-34.5) D-Dimer, Quantitative 0.50 mg/L FEU (0.0-0.49) Test 08/29/24 11:25 Lactic Acid Level 1.4 mmol/L (0.4-2.0) Magnesium Level 2.0 mg/dL (1.6-2.6) Plasma/Serum Blood Alcohol 3.4 mg/dL (<10) Other Laboratory Tests 08/31/24 06:26 Brief Hx & Hospital Course: This is a 58-year-old male with past medical history of seizure, diabetes, COPD, CHF (on 4 L of oxygen at 2, CKD grade 3, hypertension, history of COVID-19, skin cancer, degenerative disc disease and BPH brought from [facility] [place] due to multiple falls. Per patient's , the patient has been more confused and altered since 1 days and has been fall at least 3 times within last 24 hours.. Patient has been at [facility] [place] for rehabilitation. Hospital course: Initially patient was alert oriented x1 .possible acute toxic encephalopathy secondary to polypharmacy. Head CT swithout contrast revealed no acute intracranial abnormality and ammonia was normal. Chest x-ray showed pulmonary congestion with blunting of costophrenic angle and BNP was 2649. Patient was treated with IV Lasix 40 mg b.i.d., continue home meds Keppra 500 mg b.i.d. lamotrigine 200 mg b.i.d., quetiapine to 400 mg at HS, levothyroxine 25 mcg g at q.a.m., med neb with albuterol and ipratropium q.6 p.r.n., amlodipine 10 mg daily and hydralazine 10 mg IV q.6 p.r.n. Patient's oxygen requirement was titrated down to home dose and web content & social media manager was consulted regarding transfer of the patient to [facility] for rehabilitation. Discharge plan was discussed with the patient and all questions were answered. Patient is being discharged to [facility] for rehabilitation. Discharge diagnosis : # Acute toxic encephalopathy, likely due to polypharmacy # S/P recurrent fall # History of seizure disorder # History of COPD, stable # Possible acute on chronic distolic heart failure # History of hypertension # NSTEMI type 2 secondary to above # History of hypothyroidism # Possible STEPHANI on CKD secondary to hemodynamically mediated/VMN # History of diabetes type 2 , Hb A1c is 5.9 # History of skin cancer, in remission # Chronic anaemia likely secondary to CKD # History of BPH Discharge disposition: [place] [facility] acute [facility] Medications : In the SNF paper of medication lists Follow up : DC clinic in 1 week PCP in 1 week Consults/Reason for consult No consultation was done Operations or Procedures CT HEAD WITHOUT CONTRAST INDICATION: ALOC EXAM DATE: 08/29/2024 09:04 AM COMPARISON: None RADIATION DOSE: CTDIvol: 69 mGy, DLP: 1499 mGy*cm PROCEDURE: CT scans of the head were obtained from the vertex to the skull base. Sagittal and coronal reconstructions were provided. All CT scans at this medical facility are performed using dose modulation techniques as appropriate to a performed exam including the following: Automated exposure control was utilized; adjustment of the MA and/or KV according to patient size; and use of iterative reconstruction technique. FINDINGS: There is sulcal and ventricular prominence. The brain otherwise shows normal morphology and olguin-white matter differentiation, without intracranial hemorrhage, extra-axial fluid collection, mass effect or acute large vessel infarct.The basal cisterns are patent. The skull and visible facial bones are intact. The paranasal sinuses, mastoid air cells and middle ear cavities are well-aerated. The soft tissues of the scalp are unremarkable. IMPRESSION: No acute intracranial abnormality. AP portable chest HISTORY: ALOC Comparison: None FINDINGS: Heart size is enlarged. Pulmonary vascular markings increased in the right lung. IMPRESSION: 1. Mild pulmonary edema Bilateral lower extremity venous duplex Clinical History: Raised D dimer Comparison: None Technique: Duplex Doppler evaluation of the deep venous systems of both lower extremities from the common femoral veins to the popliteal veins including color Doppler and spectral/pulsed waveform analysis was performed. Findings: RIGHT SIDE: The common femoral vein demonstrates appropriate compressibility and waveform variability. There is compressibility/patency of the great saphenous vein at the proximal thigh. The femoral vein demonstrates appropriate compressibility and waveform variability. The deep femoral vein demonstrates appropriate compressibility and waveform variability. The popliteal vein demonstrates appropriate compressibility and waveform variability. There is normal compressibility at the tibioperoneal trunk. LEFT SIDE: The common femoral vein demonstrates appropriate compressibility and waveform variability. There is compressibility/patency of the great saphenous vein at the proximal thigh. The femoral vein demonstrates appropriate compressibility and waveform variability. The deep femoral vein demonstrates appropriate compressibility and waveform variability. The popliteal vein demonstrates appropriate compressibility and waveform variability. There is normal compressibility at the tibioperoneal trunk. Impression: 1. No right or left femoropopliteal venous thrombosis. ULTRASOUND ABDOMEN limited, 4 QUADRANTS INDICATION: Ascitis Evaluate for ascites. TECHNIQUE: The four quadrants of the abdomen and the right and left chest were scanned in mendez-scale to assess for the presence of ascites. No solid organ assessment was performed. FINDINGS/IMPRESSIONS: Trace bilateral pleural effusions. No evidence of fluid noted in the abdomen. Condition at Discharge: Stable Final Diagnosis/Problems List # Acute toxic encephalopathy, likely due to polypharmacy # S/P recurrent fall # History of seizure disorder # History of COPD, stable # Possible acute on chronic distolic heart failure # History of hypertension # NSTEMI type 2 secondary to above # History of hypothyroidism # Possible STEPHANI on CKD secondary to hemodynamically mediated/VMN # History of diabetes type 2 , Hb A1c is 5.9 # History of skin cancer, in remission # Chronic anaemia likely secondary to CKD # History of BPH Discharge Disposition: Group Home Facility Discharge Instruct/Medications Diet: Consistent carbohydrate, Cardiac 2g Na,low cholest Activity: No Restrictions, As Tolerated Follow Up/Referral: Follow up with DC clinic in 1 week. Follow up with PCP in 1 week. Discharge Statement: "Patient was advised to return to the ER or call 911 if any headaches, dizziness, shortness of breath, chest pain, abdominal pain, bleeding, fevers, or worsening of medical condition. Patient was counseled about treatment plan, medications, possible side effects, patientverbalized understanding. All questions were answered to the best of my ability. This discharge took greater then 30 minutes in planning, reviewing documentation, counseling the patient, and discussing with other team members." ASSESSMENT ASSESSMENT Assessment # Acute toxic encephalopathy, likely due to polypharmacy # S/P recurrent fall # History of seizure disorder # History of COPD, stable # Possible acute on chronic distolic heart failure # History of hypertension # NSTEMI type 2 secondary to above # History of hypothyroidism # Possible STEPHANI on CKD secondary to hemodynamically mediated/VMN # History of diabetes type 2 , Hb A1c is 5.9 # History of skin cancer, in remission # Chronic anaemia likely secondary to CKD # History of BPH Date of Service: Aug 31, 2024 Billing Provider: MICHELET OCHOA MD Common Visit Codes: 08706-BOY/OBS DISCH DAY >30min JOHN BARCENAS RESIDENT Aug 31, 2024 15:28 MICHELET OCHOA MD Sep 06, 2024 10:10
[2024-08-31] MEDS: lamoTRIgine 100 MG TAB PO SCH (21:57)
[2024-08-31] MEDS: QUEtiapine FUMARATE 100 MG TAB PO SCH (21:58)
[2024-08-31] MEDS: MELATONIN 5 MG TAB PO ONE (23:07)
[2024-09-01 01:00] VITALS: BP 124/57; PULSE 80; RESP 18; TEMP 98.2; O2SAT 99
[2024-09-01 05:00] VITALS: BP 120/52; PULSE 82; RESP 18; TEMP 98.4; O2SAT 97
[2024-09-01 08:30] VITALS: PULSE 81; RESP 19; O2SAT 98
[2024-09-01 09:00] VITALS: BP 120/63; PULSE 81; RESP 19; TEMP 97.8; O2SAT 98
[2024-09-01 10:00] VITALS: O2SAT 98
--- NOTE | 2024-09-01 18:53 | DVHPNRES ---
Progress Note Date Seen: Sep 01, 2024 Resident Creating Document: JOHN BARCENAS RESIDENT Medical Necessity Reason Pt with a Central, PICC or Fol: No Subjective Review of Systems This is a 58-year-old male with past medical history of seizure, diabetes, COPD, CHF (on 4 L of oxygen at 2, CKD grade 3, hypertension, history of COVID-19, skin cancer, degenerative disc disease and BPH brought from [facility] due to multiple falls. Per patient's , the patient has been more confused and altered since 1 days and has been fall at least 3 times within last 24 hours. Patient has been at [facility] for rehabilitation. Patient was seen and examined on the bedside. He is alert, oriented x3 and on 4L oxygen. No overnight event and no active complaint. Patient was discharged yesterday to [place] [facility] acute [facility] but was staying in the hospital for 1 more night because of the transportation. Objective vital signs Vital Sign Date Time Temp Pulse Resp B/P (MAP) Pulse Ox O2 Delivery O2 Flow Rate FiO2 09/01/24 10:00 98 Nasal Cannula 3.0 09/01/24 10:00 32 09/01/24 09:00 97.8 81 19 120/63 (82) 97.8 Total Intake and Output 08/31/24 08/31/24 09/01/24 15:00 23:00 07:00 Intake Total 480 ml 800 ml Output Total 1850 ml 1300 ml Balance -1370 ml -500 ml Examination Physical examination: General Appearance: Alert, Oriented X3, Cooperative, mild distress and on 4 L oxygen with nasal canula HEENT: Atraumatic, PERRLA, EOMI, Mucous membrane moist/pink Respiratory: Bilateral fine basal crackles. Cardiovascular: Regular rate, Normal S1, Normal S2, No murmurs, no chest wall tenderness Abdominal: Normal bowel sounds, Soft, No tenderness, No hepatospenomegaly, No masses Extremities: Bilateral 1+ pedal edema, No clubbing, No cyanosis, No edema, Normal pulses, No tenderness/swelling Skin: No rashes, No breakdown, No significant lesion Neuro: Bed bound and use cane, Normal speech, Strength at 5/5 X4 ext, Normal tone, Sensation intact, grossly intact cranial nerves. Psych/Mental Status: Mental status NL, Mood NL laboratory and microbiology Laboratory Tests 08/31/24 06:26 Test 08/31/24 06:26 Range/Units Serum Glucose 137 H 74-106 mg/dL Microbiology Date/Time Source Procedure Growth Status 08/30/24 08:34 Nose MRSA Screen - Final Complete 08/29/24 11:25 Blood Blood Culture - Preliminary NO GROWTH AFTER 72 HOURS OF INCUBATION. Resulted Labs and/or images reviewed: Labs reviewed by me, Image(s) reviewed by me Problem List/Assessment/Plan Problem List/Assessment/Plan Assessment/Plan # Acute toxic encephalopathy, likely due to polypharmacy # S/P recurrent fall # History of seizure - Head CT swithout contrast revealed no acute intracranial abnormality - Ammonia is normal - Continue keppra 500 mg p.o. b.i.d, lamotrigine 200 mg b.i.d and quitapine 400 mg at HS. # History of COPD, stable - Patient is on 4 L of oxygen on home - Breathing treatment p.r.n. # Possible acute on chronic distolic heart failure # History of hypertension # NSTEMI type 2 secondary to above -Chest x-ray shows pulmonary congestion with blunting of costophrenic angle - IV Lasix 40 mg b.i.d - Troponin trends are 53>60 - BNP is 2649.69 - Echo on 08/30/24 demonstrated EF 55% - Continue Amlodipine 10 mg po daily - IV Hydralazine 10 mg Q6 hr p.r.n. # History of hypothyroidism - Continue levothyroxine 25 mcg daily. # Possible STEPHANI on CKD secondary to hemodynamically mediated/VMN - 1.5L IV NS bolus given - MOnitor BMP # History of diabetes type 2 Hb A1c is 5.9 - Mild sliding scale of insulin # History of skin cancer, in remission # Chronic anaemia likely secondary to CKD - Ordered iron panel, ferritin. # History of BPH - Bladder scan is negative for acute retention. - continue tamsulosin 0.4 mg at HS DIET: cardiac DVT PROPHYLAXIS; due to anemia and possible bleeding no anticoagulant is given BOWEL REGIMEN: Docusate CODE STATUS: Goal of care is discussed with the and son on the bedside, modified DNR DISPOSITION: Telemetry Plan discussed with Plan discussed with: Patient, Other Date of Service: Sep 01, 2024 Billing Provider: MICHELET OCHOA MD Common Visit Codes: [id number] INP/OBS CARE(HIGH) JOHN BARCENAS RESIDENT Sep 01, 2024 18:53 MICHELET OCHOA MD Sep 05, 2024 09:49
== END 2024-09-01 10:00 | DRG 52 ==
LOC: EDBD 07:54 → ER 07:54 → TELE 22:17 → TELE-WESTW 08-31 01:39
PROVIDERS: ADMIT Student in an Organized Health Care Education/Training Program; ATTEND Student in an Organized Health Care Education/Training Program
DX: G92.8 Other toxic encephalopathy (principal); N17.0 Acute kidney failure with tubular necrosis; I21.A1 Myocardial infarction type 2; I50.33 Acute on chronic diastolic (congestive) heart failure; D63.1 Anemia in chronic kidney disease; Z20.822 Contact with and (suspected) exposure to COVID-19; N18.4 Chronic kidney disease, stage 4 (severe); I13.0 Hypertensive heart and chronic kidney disease with heart failure and stage 1 through stage 4 chronic kidney disease, or unspecified chronic kidney disease; E11.22 Type 2 diabetes mellitus with diabetic chronic kidney disease; J44.9 Chronic obstructive pulmonary disease, unspecified; N40.0 Benign prostatic hyperplasia without lower urinary tract symptoms; E03.9 Hypothyroidism, unspecified; Z66 Do not resuscitate; G40.909 Epilepsy, unspecified, not intractable, without status epilepticus; Z87.891 Personal history of nicotine dependence; Z85.828 Personal history of other malignant neoplasm of skin; T50.915A Adverse effect of multiple unspecified drugs, medicaments and biological substances, initial encounter
CPT/HCPCS: 36415; 36600; 70450; 71045; 76705; 80048; 80053; 80307; 80320; 81001; 82140; 82306; 82570; 82607; 82728; 82746; 82805; 82962; 83036; 83540; 83550; 83605; 83735; 83880; 84156; 84300; 84439; 84443; 84481; 84484; 85025; 85379; 85610; 85730; 86592; 87040; 87081; 87426; 87804; 93005; 93306; 93970; 94640; 97110; 97116; 97163; 97530; G0378